=== PATIENT | female | born 1995 | race Caucasian/White ===

== ENCOUNTER 2017-03-15 02:50 | Emergency (ER) | payer OTHER ==
[2017-03-15 03:58] VITALS: BP 125/75; PULSE 91; TEMP 97.6; BMI 39.4
[2017-03-15] MEDS ORDERED: LIDOCAINE 2.5%/PRILOCAINE 2.5% (5 Gram/TUBE) TP ONE ×2 (03:59→04:10)
[2017-03-15] MEDS ORDERED: LIDOCAINE HCL 1%, 10 MG/ML (50 mL VIAL) SQ ONE (04:10)
[2017-03-15] MEDS ORDERED: LIDOCAINE HCL 1%, 10 MG/ML (20ML VIAL) ONE (04:10)
--- NOTE | 2017-03-15 04:17 | PDOC ---
History of Present Illness - General Chief Complaint: Ear Problem Stated Complaint: EAR PAIN Time Seen by Provider: 03/15/17 03:57 History Source: Patient Exam Limitations: No Limitations - History of Present Illness Initial Comments: 03/15/17 04:12 The patient is a 21F with no PMH who presents to the ER with complaints of ear pain. The patient states that she got an ear piercing 1-2 weeks ago. She states that 3-4 days ago, she felt swelling around that piercing. She tried to clean the area but it continued to swell. Today, she says she can no longer see the exterior portion of the earring but only sees the backing of it. She denies fever, chills, ear draining but admits to some pus draining from the site. Past History - Past Medical History Allergies/Adverse Reactions: Allergies Allergy/AdvReac Type Severity Reaction Status Date / Time No Known Allergies Allergy Verified 03/15/17 03:56 Home Medications: Ambulatory Orders Clindamycin [Cleocin -] 300 mg PO Q6HPO #28 capsule 03/15/17 - Suicide/Smoking/Psychosocial Hx Smoking History: Never smoked Have you smoked in the past 12 months: No Information on smoking cessation initiated: No Hx Alcohol Use: No Drug/Substance Use Hx: No Review of Systems - Review of Systems Able to Perform ROS?: Yes Comments:: 03/15/17 04:15 GENERAL/CONSTITUTIONAL: No fever or chills. No weakness. HEAD, EYES, EARS, NOSE AND THROAT: Positive for L ear swelling where pierced. No change in vision. No sore throat. GASTROINTESTINAL: No nausea, vomiting, diarrhea, constipation, or abdominal pain. GENITOURINARY: No dysuria, frequency, hematuria, or change in urination. CARDIOVASCULAR: No chest pain, palpitations, or lightheadedness. RESPIRATORY: No cough, wheezing, shortness of breath, or hemoptysis. MUSCULOSKELETAL: No joint or muscle swelling or pain. No neck or back pain. SKIN: No rash or lesions. NEUROLOGIC: No headache, numbness, tingling, weakness, loss of consciousness, or change in strength/sensation. ENDOCRINE: No increased thirst. No abnormal weight change. HEMATOLOGIC/LYMPHATIC: No anemia, easy bleeding, or history of blood clots. ALLERGIC/IMMUNOLOGIC: Positive for skin allergy to certain metals. Is the patient limited [place] proficient: No *Physical Exam - Vital Signs Last Vital Signs Temp Pulse Resp BP Pulse Ox 97.6 F 91 H 20 125/75 100 03/15/17 03:56 03/15/17 03:56 03/15/17 03:56 03/15/17 03:56 03/15/17 03:56 - Physical Exam Comments: 03/15/17 04:26 GENERAL: Well developed, well nourished. Awake and alert. No acute distress. HEENT: Normocephalic, atraumatic. Hearing grossly normal. L halix erythema, swelling, tender to palpation and warm to touch. Moist mucous membranes. PERRLA , EOMI. No conjunctival pallor. Sclera are non-icteric. Oropharynx is clear. NECK: Supple. Full ROM. No JVD. CARDIOVASCULAR: Regular rate and rhythm. No murmurs, rubs, or gallops. PULMONARY: No evidence of respiratory distress. Lungs clear to auscultation bilaterally. No wheezing, rales or rhonchi. ABDOMINAL: Soft. Non-tender. Non-distended. No rebound or guarding. No organomegaly. Normoactive bowel sounds. GENITOURINARY: No CVA tenderness bilaterally. MUSCULOSKELETAL: Normal range of motion at all joints. No bony deformities or tenderness. SKIN: Warm and dry. Normal capillary refill. No rashes. No jaundice. NEUROLOGICAL: Alert, awake, appropriate. Cranial nerves 2-12 intact. Normal speech. Gait is normal without ataxia. PSYCHIATRIC: Cooperative. Good eye contact. Appropriate mood and affect. ED Treatment Course - LABORATORY CBC & Chemistry Diagram: 03/15/17 05:01 03/15/17 05:01 Medical Decision Making - Medical Decision Making 03/15/17 04:32 The patient is a 21F with no PMH who presents to the ED with complaints of a swollen ear. The piercing of the ear is stuck inside of her ear 2/2 to the swelling. I will incise the ear and take out the piercing and cover with antibiotics. 03/15/17 05:19 I have removed the earring. Will give clindamycin IV and PO for outpatient. Will also give a riferral to ENT Dr. Rasmussen. *DC/Admit/Observation/Transfer Diagnosis at time of Disposition: Cellulitis Qualifiers: Site of cellulitis: other site Qualified Code(s): L03.818 - Cellulitis of other sites - Discharge Dispostion Disposition: HOME Condition at time of disposition: Stable Admit: No - Referrals Referrals: Marcy Gutierrez MD [Primary Care Provider] - - Patient Instructions Printed Discharge Instructions: DI for Cellulitis -- Adult Additional Instructions: Please return to the ER if symptoms persist, worsen, or new symptoms arise. Please follow up with your primary care physician in 2-3 days. Please return to the ER if you have any signs or symptoms of chest pain, shortness of breath, uncontrollable fever, chills, nausea, vomiting, numbness, tingling, or weakness in any part of your body, changes in vision, or slurred speech. Please take your medications as prescribed. - Post Discharge Activity
[2017-03-15] MEDS ORDERED: morphine CARPU-JECT 4 MG/1 ML DISP.SYRIN IVPUSH ONE (05:07)
[2017-03-15] MEDS ORDERED: morphine CARPU-JECT 10 MG/1 ML DISP.SYRIN ONE (05:08)
[2017-03-15 05:10] LABS: BASO % 0.8 % (0-2.0); EOS % 2.2 % (0-4.5); HEMATOCRIT 38.9 % (32.4-45.2); HEMOGLOBIN 12.8 GM/dL (10.7-15.3); LYMPH % 25.5 % (8-40); MCH 28.4 pg (25.7-33.7); MCHC 32.9 g/dl (32.0-36.0); MEAN CELL VOLUME 86.2 fl (80-96); MEAN PLT VOLUME 8.5 fl (7.5-11.1); MONO % 9.2 % (3.8-10.2); NEUT % 62.3 % (42.8-82.8); PLATELET COUNT 356 K/MM3 (134-434); RBC 4.52 M/mm3 (3.60-5.2); RDW 13.2 % (11.6-15.6); WHITE BLOOD COUNT 9.9 K/mm3 (4.0-10.0)
[2017-03-15] MEDS ORDERED: CLINDAMYCIN 600MG PREMIX IVPB 600 MG/50 ML BAG IVPB ONE ×2 (05:17→05:43)
--- NOTE | 2017-03-15 05:27 | PDOC ---
Attending Attestation - Resident Resident Name: Simón Boateng - ED Attending Attestation I have performed the following: I have examined & evaluated the patient, The case was reviewed & discussed with the resident, I agree w/resident's findings & plan - HPI HPI: 03/15/17 05:26 Pt comes with left pinna swelling. Pt has an earring stuck in her upper lateral pinna, external helix. - Physicial Exam PE: 03/15/17 05:27 Agree [facility] resident exam - Medical Decision Making 03/15/17 05:27 Emla placed; regional block to numb the area done. Earring and backing removed.
== END 2017-03-15 06:11 | disposition home or self-care (01) ==
LOC: JER 02:50
PROC: 09C10ZZ Extirpation of Matter from Left External Ear, Open Approach (ICD-10-PCS; principal; 2017-03-15)
DX: H60.12 Cellulitis of left external ear (principal); T16.2XXA Foreign body in left ear, initial encounter; M79.5 Residual foreign body in soft tissue; X58.XXXA Exposure to other specified factors, initial encounter; Y93.9 Activity, unspecified; Y92.038 Other place in apartment as the place of occurrence of the external cause
CPT/HCPCS: 36415; 85025; 99283-25

== ENCOUNTER 2022-10-22 15:35 | Emergency (ER) | payer BC, OTHER ==
[2022-10-22 16:18] VITALS: BP 127/87; PULSE 88; RESP 16; TEMP 98.3; BMI 40.2
[2022-10-22] MEDS ORDERED: ACETAMINOPHEN 500 MG TABLET (FP) PO ONE (16:44)
[2022-10-22] MEDS ORDERED: IBUPROFEN 400 MG TABLET (FP) PO ONE ×2 (16:45→16:47)
[2022-10-22] MEDS ORDERED: ACETAMINOPHEN 325 MG TABLET (FP) ONE (16:47)
== END 2022-10-22 17:23 | disposition home or self-care (01) ==
LOC: FER 15:35
DX: M54.50 Low back pain, unspecified (principal); V03.10XA Pedestrian on foot injured in collision with car, pick-up truck or van in traffic accident, initial encounter
CPT/HCPCS: 99283-25